=== PATIENT | female | born 1940 | race Hispanic/Latino ===

== ENCOUNTER 2020-01-25 00:21 | Emergency (ER) | payer OTHER ==
[2020-01-25] MEDS ORDERED: SODIUM CHLORIDE 0.9% 500ML 500 ML IV ONE (00:22)
[2020-01-25] MEDS ORDERED: MORPHINE SULFATE 4 MG/1ML SYG ONE (01:29)
[2020-01-25] MEDS ORDERED: ONDANSETRON HCL 4 MG/2 ML VIAL ONE (01:29)
[2020-01-25 01:30] LABS: BASOPHILS % (AUTO) 0.4 % (0.0-5.0); HEMATOCRIT 43.4 % (36-48); LYMPHOCYTES % (AUTO) 34.6 % (21.0-51.0); MEAN CORPUSCULAR HEMOGLOBIN 29.5 pg (27.0-33.0); MEAN CORPUSCULAR HGB CONC 33.2 g/dL (32.0-36.0); MEAN CORPUSCULAR VOLUME 88.9 fL (79-99); MONOCYTES % (AUTO) 8.8 % (3.0-13.0); PLATELET COUNT (AUTO) 223 K/uL (130-400); RED BLOOD CELL COUNT(AUTO) 4.88 MIL/uL (4.00-5.50); RED CELL DISTRIBUTION WIDTH 13.9 % (11.0-15.5); WHITE BLOOD COUNT (AUTO) 8.4 K/uL (4.8-10.8)
[2020-01-25 02:03] LABS: CREATININE 0.5 mg/dL (0.5-1.5); POTASSIUM 4.6 mmol/L (3.5-5.1)
[2020-01-25 02:39] LABS: ERYTHROCYTE SEDIMENTATION RATE 10 MM/HR (0-30)
== END 2020-01-25 04:46 | disposition home or self-care (01) ==
LOC: EDH 00:21
DX: G44.89 Other headache syndrome (principal); I10 Essential (primary) hypertension; Z90.49 Acquired absence of other specified parts of digestive tract; Z90.710 Acquired absence of both cervix and uterus
CPT/HCPCS: 36415; 70470; 70488; 80048; 85025; 85651; 96374; 96375; 99285; J2270; J2405; J7040; Q9967

== ENCOUNTER → 2022-05-07 | Outpatient (CLI) | payer OTHER | END | disposition home or self-care (01) | LOC: RAH 14:00 | PROVIDERS: ATTEND Internal Medicine | DX: R79.89 Other specified abnormal findings of blood chemistry (principal); R06.02 Shortness of breath | CPT/HCPCS: 93970 ==

== ENCOUNTER → 2025-01-30 | Outpatient (CLI) | payer OTHER ==
--- NOTE | 2025-01-30 20:51 | HMCSR ---
APPROVED REPORT EXAM: Two-dimensional and M-mode echocardiogram with Doppler and color Doppler. INDICATION ICD: Acute and Subacute Bacterial Endocarditis I33.0 2D Dimensions RVDd3.0 cmLVEF(%)66.8 (>50%)LVED Vol(simp.)37.0 mL IVSd1.0 (0.7-1.1cm)FS(%)37 %LVES Vol(simp.)15.0 mL LVDd4.1 (3.8-5.6cm)LA (2D)4.4 (1.6-4.0cm)LVEF(%, simp.)59 % PWd1.5 (0.7-1.1cm)Ao Root(2D)2.7 (2.0-3.7cm)LA ESV INDEX (BP)18.28 mL/m2 IVSs1.5 cmLVOT diam1.9 (1.8-2.4cm) LVDs2.6 (2.5-4.0cm) PWs2.0 cm M-Mode Dimensions EPSS0.8 cm LA (MM)3.7 (1.6-4.0cm) Ao Root(MM)2.6 (2.0-3.7cm) Aortic Valve AoV Vmax1.8 m/[place] GR12.8 mmHgLVOT Vmax0.9 m/s AoV VTI0.4 mAo Mean GR7.8 mmHgLVOT VTI0.19 m PAN (VMAX)1.36 cm2AVA (VTI) 1.4 cm2 Mitral Valve MV E Vmax83.7 cm/sDECEL Ozae249 msMV Peak GR7 mmHg MV A Jeej268.9 cm/sP 1/2 T62 msMV Mean GR2 mmHg E/A ratio0.6MVA (PHT)3.5 cm2MVA (VTI)1.30 cm2 MR [id number] cm2 TDI E/E' Aukjjn54.0E/E' Uthptcg40.8 Medial E' Peak V5.24 cm/sLateral E' Peak V3.52 cm/s Pulmonary Valve PV Vmax0.7 m/sPV VTI0.17 mPV Mean GR1.2 mmHg PV Peak GR2.2 mmHg Tricuspid Valve TR Vmax2.0 m/sRAP (EST) 3 zzQuYQHX28.2 mmHg TR Peak GR16.2 mmHg Left Ventricle The left ventricle is normal size. There is normal LV segmental wall motion. There is normal left radha tricular wall thickness. LVEF is 60-65%. Stage I diastolic dysfunction. Right Ventricle The right ventricle is normal size. The right ventricular systolic function is mildly reduced. Atria The left atrium size is normal. The right atrium size is normal. Aortic Valve Aortic valve annular calcification noted. Aortic valve is trileaflet and opens well. No aortic regurg itation is present. There are no aortic valvular vegetations. There is no aortic valvular stenosis. Mitral Valve There is mitral annular calcification. There is mild mitral valve regurgitation noted. There are no m itral valvular vegetations. There is no mitral valve stenosis. Tricuspid Valve The tricuspid valve leaflets appear normal. There is trace tricuspid valve regurgitation noted. Pulmonic Valve The pulmonary valve is normal in structure. There is trace pulmonic valvular regurgitation. Great Vessels The aortic root is normal in size. The IVC is normal in size and collapses >50% with inspiration. Pericardium There is no pericardial effusion. Other Information Quality : Adequate Conclusion The left ventricle is normal in size. There is normal left ventricular wall thickness. There is normal LV segmental wall motion. LVEF is 60-65%. Stage I diastolic dysfunction. Aortic valve annular calcification noted. Aortic valve is trileaflet and opens well. There are no aortic valvular vegetations. There is mitral annular calcification. There is mild mitral valve regurgitation noted. There are no mitral valvular vegetations. There is no pericardial effusion.
== END | disposition home or self-care (01) ==
LOC: RAH 13:32
PROVIDERS: ATTEND Internal Medicine
DX: I08.0 Rheumatic disorders of both mitral and aortic valves (principal); I11.9 Hypertensive heart disease without heart failure; I33.0 Acute and subacute infective endocarditis
CPT/HCPCS: 93306